=== PATIENT | male | born 1980 | race Caucasian/White ===

== ENCOUNTER → 2016-12-10 | Outpatient (CLI) | payer OTHER ==
--- NOTE | 2016-12-10 12:04 | REP ---
MR BRAIN WITHOUT CONTRAST: HISTORY: Headache. There are no areas of abnormal signal intensity in the brain. There is no intraparenchymal hemorrhage, infarct, mass or midline shift. The sell [place] is partially empty. The ventricular system is normal in appearance. There is no extracerebral collection. Mucosal thickening is present in the ethmoid, maxillary and right frontal sinuses. IMPRESSION: There is no intracranial lesion. Signed by Flakito Cooper MD 12/10/2016 12:09 P
== END ==
LOC: M RAD 10:12
PROVIDERS: ATTEND Family Medicine
DX: R51 Headache (principal)

== ENCOUNTER → 2016-12-20 | Outpatient (CLI) | payer OTHER ==
--- NOTE | 2016-12-20 10:51 | REP ---
MRA BRAIN WITHOUT CONTRAST: HISTORY: Headaches. 3D [id number] MR angiography was performed at the level of the [place]. There is no aneurysm, arteriovenous malformation or atherosclerotic lesion. The A1 segment of the left anterior cerebral artery is hypoplastic. The major intracranial vessels are patent. The vertebral arteries are equal in size. IMPRESSION: Normal MRA brain. Signed by Flakito Cooper MD 12/20/2016 10:52 A
== END ==
LOC: M RAD 09:52
PROVIDERS: ATTEND Family Medicine
DX: R51 Headache (principal)